=== PATIENT | female | born 1985 | race African-American/Black ===

== ENCOUNTER → 2018-08-13 | Outpatient (CLI) | payer OTHER ==
--- NOTE | 2018-08-14 18:07 | RAD ---
DATE: 08/13/2018 EXAM: MAMMO DAMARISErnesto LOPEZAT, BREAST BILATERAL HISTORY: Bilateral nipple discharge for a few to several years. Recent bloody discharge bilaterally. COMPARISON: None. This exam is the baseline. This study was interpreted with the benefit of Computerized Aided Detection (CAD). Breast Density: HETERO The breast parenchyma is heterogenously dense, which could reduce sensitivity of mammography. Breast parenchyma level C. FINDINGS: Bilateral breast ultrasound exam was performed. No mass or subareolar ductal ectasia. At the right breast 9:00 region 3 cm from the nipple, there is a hypoechoic structure without flow within it measuring 0.5 cm x 0.47 x 0.2 cm tall. It is smoothly marginated. No suspicious calcifications or distortion. No persistent suspicious asymmetry on spot compression imaging. IMPRESSION: Clinical management of nipple discharge is recommended. Small hypoechoic mass at the right outer breast. Interval follow-up in 6 months with ultrasound recommended to assess stability. BI-RADS CATEGORY: 3 PROBABLY BENIGN FINDING(S)-SHORT INTERVAL FOLLOW-UP SUGGESTED RECOMMENDED FOLLOW-UP: 6M 6 MONTH FOLLOW-UP PQRS compliance statement: Patient information was entered into a reminder system with a target due date based on clinical management for the next mammogram. Mammography is a sensitive method for finding small breast cancers, but it does not detect them all and is not a substitute for careful clinical examination. A negative mammogram does not negate a clinically suspicious finding and should not result in delay in biopsying a clinically suspicious abnormality. "Our facility is accredited by the [employer] Mammography [employer]."
== END | disposition home or self-care (01) ==
LOC: US 11:03
PROVIDERS: ATTEND Obstetrics & Gynecology
DX: Z01.419 Encounter for gynecological examination (general) (routine) without abnormal findings (principal); N63.11 Unspecified lump in the right breast, upper outer quadrant; N92.0 Excessive and frequent menstruation with regular cycle; N64.52 Nipple discharge
CPT/HCPCS: 76641; 77066; G0279; 77062

== ENCOUNTER → 2018-08-20 | Outpatient (CLI) | payer OTHER ==
--- NOTE | 2018-08-20 15:14 | RAD ---
Transabdominal pelvic ultrasound 08/20/2018 INDICATION: Menorrhagia COMPARISON STUDY: None Discussion: Ultrasound evaluation of the pelvis was performed transabdominally. Static images are submitted to PACS. Uterus measures 10.8 x 4.0 5.5 cm. Endometrial thickness is 6 mm. No focal uterine lesions are identified. The right ovary measures 3.5 x 2.3 x 3.9 cm. Left ovary measures 3.4 x 2.5 x 2.4 cm. Blood flow to bilateral ovaries is identified on color Doppler imaging. Limited visualization of the bladder is unremarkable. No free fluid is seen in the pelvis. IMPRESSION: Unremarkable transabdominal sonographic appearance of the pelvis Electronically signed by: Tho Mayorga MD (08/20/2018 3:11 PM) [facility]
== END | disposition home or self-care (01) ==
LOC: US 11:52
PROVIDERS: ATTEND Obstetrics & Gynecology
DX: Z01.419 Encounter for gynecological examination (general) (routine) without abnormal findings (principal); N92.0 Excessive and frequent menstruation with regular cycle; N64.52 Nipple discharge
CPT/HCPCS: 76856

== ENCOUNTER 2020-05-03 15:04 | Emergency (ER) | payer SELFPAY ==
[~2020-05-03] VITALS: Ht 172.7 cm; Wt 107.7 kg
--- NOTE | 2020-05-03 16:51 | RAD ---
US OB <14 WKS +TV History: Reason: pelvic pain r/o ectopic / Spl. Instructions: / History: Comparison: August 20, 2018. Technique: Grayscale and color Doppler imaging of the pelvis was performed using transabdominal and t ransvaginal technique. Findings: The uterus measures 9.0 x 5.0 x 4.0 cm. No evidence of intrauterine . Endometrial thickness 1.0 cm. Right ovary measures 3.3 x 1.8 x 1.6 cm. Left ovary measures 4.2 x 2.7 x 1.8 cm. Complex left ovarian follicle measures 2.5 cm. Normal Doppler flow to the ovaries bilaterally. No adnexal masses are seen. IMPRESSION: 1. No evidence of intrauterine , may relate to early . Recommend short-term ultras ound follow-up and serial beta-hCG testing to exclude ectopic . 2. Left ovarian complicated follicle. Recommend attention on follow-up. Electronically signed by: Momo Harman DO (05/03/2020 4:49 PM) [id number]
[2020-05-03 17:57] LABS: PREG TEST PT QUAL NEGATIVE (NEG)
--- NOTE | 2020-05-03 18:02 | ED.ADGEN ---
General Adult EDM: Chief Complaint: ABDOMINAL PAIN HPI: HPI: Patient is a 34 year old AA female who presents to the emergency department with complaints of left-sided lower abdominal/pelvic pain with nausea and vomiting that has been worse for the last 2 to 3 days. Patient was sent by Dr. Sheehan to rule out ectopic . Patient reports she has had a total of four ectopic pregnancies even after her D&C. Patient denies any diarrhea, dysuria, hematuria, increased urinary frequency, fever, cough, or shortness of breath. She currently rates her pain a 6 out of 10 on the pain scale, she denies any alleviating factors. Patient denies any abnormal vaginal discharge or vaginal bleeding. Review of Systems: Review of Systems: Complete ROS is negative unless otherwise noted in HPI. Current Medications: Current Medications Medications (Trade) Dose Ordered Sig/Sb Start Time Stop Time Status Last Admin Dose Admin Acetaminophen/ Hydrocodone Bitart (Lortab 5/325) 1 tab 1X ONCE 05/03/20 18:00 05/03/20 18:19 DC 05/03/20 18:16 1 TAB Allergies: Allergies: Allergies Coded Allergies Type Severity Reaction Last Updated Verified No Known Drug Allergies 05/03/20 No Physical Exam: PE: See Above Constitutional: Well developed, well nourished, no acute distress, non-toxic appearance, obese. [] HENT: Normocephalic, atraumatic, bilateral external ears normal, nose normal. [] Eyes: PERRLA, EOMI, conjunctiva normal, no discharge. [] Neck: Normal range of motion, no stridor. [] Cardiovascular:Heart rate regular rhythm Lungs & Thorax: Respirations even and unlabored, no retractions, no respiratory distress Abdomen: soft, left suprapubic tenderness to palpation, no palpable mass, no guarding, no rebound tenderness Skin: Warm, dry, no erythema, no rash. [] Extremities: No cyanosis, ROM intact, no edema. [] Neurologic: Alert and oriented X 3, no focal deficits noted. [] Psychologic: Affect normal, judgement normal, mood normal. [] Current Patient Data: Labs: Laboratory Tests Test 05/03/20 17:25 Serum Test, Qualitative Negative (NEG) Vital Signs: Vital Signs Date Time Temp Pulse Resp B/P (MAP) Pulse Ox O2 Delivery O2 Flow Rate FiO2 05/03/20 18:16 98.5 85 24 123/63 (83) 99 Room Air 98.5 EKG: EKG: [] Heart Score: Risk Factors: Risk Factors: DM, Current or recent (<one month) smoker, HTN, HLP, family history of CAD, obesity. Risk Scores: Score 0 - 3: 2.5% MACE over next 6 weeks - Discharge Home Score 4 - 6: 20.3% MACE over next 6 weeks - Admit for Clinical Observation Score 7 - 10: 72.7% MACE over next 6 weeks - Early Invasive Strategies Radiology/Procedures: Radiology/Procedures: PROCEDURE: OB <14 WKS W/TV US OB <14 WKS +TV History: Reason: pelvic pain r/o ectopic / Spl. Instructions: / History: Comparison: August 20, 2018. Technique: Grayscale and color Doppler imaging of the pelvis was performed using transabdominal and transvaginal technique. Findings: The uterus measures 9.0 x 5.0 x 4.0 cm. No evidence of intrauterine . Endometrial thickness 1.0 cm. Right ovary measures 3.3 x 1.8 x 1.6 cm. Left ovary measures 4.2 x 2.7 x 1.8 cm. Complex left ovarian follicle measures 2.5 cm. Normal Doppler flow to the ovaries bilaterally. No adnexal masses are seen. IMPRESSION: 1. No evidence of intrauterine , may relate to early . Recommend short-term ultrasound follow-up and serial beta-hCG testing to exclude ectopic . 2. Left ovarian complicated follicle. Recommend attention on follow-up. [] Course & Med Decision Making: Course & Med Decision Making Pertinent Labs and Imaging studies reviewed. (See chart for details) 1800-I spoke with about the patient's negative blood hCG and ult rasound report. Per Dr. Sheehan I will prescribe the patient 20 tablets of [place] 5/325 mg and inform the patient that she needs to call the office tomorrow to arrange for follow-up. Patient will be encouraged to return to the ER if symptoms worsen or fever develops. Patient verbalized an understanding of home care, medications, follow-up, and return to ED instructions and was in agreement with the plan of care. [] Dragon Disclaimer: Dragon Disclaimer: This electronic medical record was generated, in whole or in part, using a voice recognition dictation system. Departure Departure Impression: Primary Impression: Acute pelvic pain, female Disposition: 01 DC HOME SELF CARE/HOMELESS Condition: STABLE Referrals: NO PCP (PCP) Patient Instructions: Pelvic Pain, Female, [id number] Additional Instructions: Fill the prescription and use it as directed. Call Dr. Guerin's office in the morning to arrange for follow-up for complex follicle. Return to the ER if symptoms worsen or fever develops. Scripts Hydrocodone Bit/Acetaminophen (HYDROCODONE-APAP 5-325 ) 1 Tab Tablet 1 TAB PO PRN Q6HRS PRN for PAIN for 5 Days, #20 TAB 0 Refills Prov: HEATHER WALKER DEVICE REPAIR TECHNICIAN 05/03/20 HEATHER WALKER DEVICE REPAIR TECHNICIAN May 03, 2020 18:02
[2020-05-03] MEDS: HYDROcodone/APAP 5/325MG 1 TAB TABLET PO ONE (18:16)
[2020-05-03 18:30] VITALS: BP 116/68
[2020-05-03] MEDS ORDERED: HYDR-2761 PO (18:36)
== END 2020-05-03 18:50 | disposition home or self-care (01) ==
LOC: ER 15:04
DX: R10.2 Pelvic and perineal pain (principal); R10.32 Left lower quadrant pain; R11.2 Nausea with vomiting, unspecified
CPT/HCPCS: 76801; 76817; 84703; 99285-25

== ENCOUNTER 2020-05-31 12:16 | Emergency (ER) | payer SELFPAY ==
[~2020-05-31] VITALS: Ht 172.7 cm; Wt 100.0 kg
[~2020-05-31 12:16] MED LIST: HYDR-2761 PO
[2020-05-31] MEDS ORDERED: ONDANSETRON ODT 4 MG TAB.RAPDIS. PO ONE (12:45)
[2020-05-31] MEDS ORDERED: oxyCODONE/APAP 5/325 1 TAB TABLET PO ONE (12:45)
[2020-05-31 12:52] LABS: BILIRUBIN,URINE NEGATIVE (NEG); CLARITY,URINE CLEAR; COLOR,URINE YELLOW; NITRITE,URINE NEGATIVE (NEG); PH,URINE 6.5 (<5.0-8.0); PROTEIN,URINE NEGATIVE (NEG-TRACE)
[2020-05-31 13:05] LABS: BACTERIA,URINE FEW /HPF (0-FEW); RBC,URINE 0 /HPF (0-2)
--- NOTE | 2020-05-31 13:35 | RAD ---
INDICATION: Reason: left pelvic pain hx of ovarian cyst 05/03. Instructions: / History: COMPARISON: August 20, 2018 TECHNIQUE: Grayscale and color ultrasound images uterus and adnexa. FINDINGS: Uterus: 95 x 57 x 50 mm. Endometrial stripe is 5-6 mm. Right Ovary: 37 x 29 x 25 mm. Left Ovary: 38 x 30 x 27 mm. Vascular flow identified to bilateral ovaries. Mixed echogenicity lesion in the left ovary measuring 24 x 13 x 20 mm IMPRESSION: * Vascular flow seen to the bilateral ovaries. * Repeat demonstration of mixed echogenicity lesion at the left ovary but does not appear significan tly changed in size compared to prior Electronically signed by: Toño Slater MD (05/31/2020 1:32 PM) [id number]
--- NOTE | 2020-05-31 14:43 | PHYS DOC ---
Past Medical History Past Medical History: Anxiety, Unknown Additional Past Medical Histor: ECTOPIC ,OVARIAN CYST Past Surgical History: Other Additional Past Surgical Histo: TUBAL, ANKLE Smoking Status: Current Every Day Smoker Alcohol Use: Occasionally General Adult EDM: Chief Complaint: ABDOMINAL PAIN HPI: HPI: Patient is a 34 year old female with history of anxiety who presents to the ED today complaining of 10 out of 10 sharp left pelvic pain, symptoms of been going on intermittently since April 2020. Denies anything specifically exacerbating or relieving her symptoms. She states she was seen in the ED on May 03, 2020 in the Ed, was diagnosed with left ovarian cyst. She states she followed-up with Dr. Guerin who told her she needs to have a procedure done to take care of the cyst but she is unable to get the procedure done because she does not have any medical insurance and also ran out of her pain medicine Review of Systems: Review of Systems: Constitutional: Denies fever or chills. [] Eyes: Denies change in visual acuity. [] HENT: Denies nasal congestion or sore throat. [] Respiratory: Denies cough or shortness of breath. [] Cardiovascular: Denies chest pain or edema. [] GI: Reports left pelvic pain, denies nausea, vomiting, bloody stools or diarrhea. [] : Denies dysuria. [] Musculoskeletal: Denies back pain or joint pain. [] Integument: Denies rash. [] Neurologic: Denies headache, focal weakness or sensory changes. [] [] Psychiatric: Denies depression or anxiety. [] Heart Score: Risk Factors: Risk Factors: DM, Current or recent (<one month) smoker, HTN, HLP, family history of CAD, obesity. Risk Scores: Score 0 - 3: 2.5% MACE over next 6 weeks - Discharge Home Score 4 - 6: 20.3% MACE over next 6 weeks - Admit for Clinical Observation Score 7 - 10: 72.7% MACE over next 6 weeks - Early Invasive Strategies Current Medications: Current Medications Medications (Trade) Dose Ordered Sig/Sb Start Time Stop Time Status Last Admin Dose Admin Ondansetron HCl (Zofran Odt) 4 mg 1X ONCE 05/31/20 12:45 05/31/20 12:46 DC 05/31/20 13:13 4 MG Oxycodone/ Acetaminophen (Percocet 5/325) 1 tab 1X ONCE 05/31/20 12:45 05/31/20 12:46 DC 05/31/20 13:13 1 TAB Allergies: Allergies: Allergies Coded Allergies Type Severity Reaction Last Updated Verified No Known Drug Allergies 05/03/20 No Physical Exam: PE: Constitutional: Well developed, well nourished, no acute distress, non-toxic appearance. [] Abdomen: Bowel sounds normal, soft, mild left pelvic tenderness, no masses, no pulsatile masses. [] Pelvic exam Deferred per patient request Skin: Warm, dry, no erythema, no rash. [] Back: No tenderness, no CVA tenderness. [] Extremities: No tenderness, no cyanosis, no clubbing, ROM intact, no edema. [] Neurologic: Alert and oriented X 3, normal motor function, normal sensory function, no focal deficits noted. Psychologic: Affect normal, judgement normal, mood normal. [] Current Patient Data: Labs: Laboratory Tests Test 05/31/20 12:45 05/31/20 12:47 Urine Collection Type Unknown Urine Color Yellow Urine Clarity Clear Urine pH 6.5 (<5.0-8.0) Urine Specific [place] 1.020 (1.000-1.030) Urine Protein Negative mg/dL (NEG-TRACE) Urine Glucose (UA) Negative mg/dL (NEG) Urine Ketones (Stick) Negative mg/dL (NEG) Urine Blood Negative (NEG) Urine Nitrite Negative (NEG) Urine Bilirubin Negative (NEG) Urine Urobilinogen Dipstick 1.0 mg/dL (0.2 mg/dL) Urine Leukocyte Esterase Small (NEG) Urine RBC 0 /HPF (0-2) Urine WBC 5-10 /HPF (0-4) Urine Squamous Epithelial Cells Mod /LPF Urine Bacteria Few /HPF (0-FEW) POC Urine HCG, Qualitative Hcg negative (Negative) Vital Signs: Vital Signs Date Time Temp Pulse Resp B/P (MAP) Pulse Ox O2 Delivery O2 Flow Rate FiO2 05/31/20 13:13 16 99 05/31/20 12:34 97.7 84 133/58 (83) Room Air 97.7 EKG: EKG: [] Radiology/Procedures: Radiology/Procedures: []PROCEDURE: PELVIS COMPLETE INDICATION: Reason: left pelvic pain hx of ovarian cyst 05/03 / Spl. Instructions: / History: COMPARISON: August 20, 2018 TECHNIQUE: Grayscale and color ultrasound images uterus and adnexa. FINDINGS: Uterus: 95 x 57 x 50 mm. Endometrial stripe is 5-6 mm. Right Ovary: 37 x 29 x 25 mm. Left Ovary: 38 x 30 x 27 mm. Vascular flow identified to bilateral ovaries. Mixed echogenicity lesion in the left ovary measuring 24 x 13 x 20 mm IMPRESSION: * Vascular flow seen to the bilateral ovaries. * Repeat demonstration of mixed echogenicity lesion at the left ovary but does not appear significantly changed in size compared to prior Electronically signed by: Je Bright MD (05/31/2020 1:32 PM) [id number] DICTATED and SIGNED BY: JE BRIGHT MD DATE: 05/31/20 [id number] Course & Med Decision Making: Course & Med Decision Making Pertinent Labs and Imaging studies reviewed. (See chart for details) This is a 34-year-old female patient presenting to the ED today with left pelvic pain, symptoms began in April. She was diagnosed with left ovarian cyst on May 03 and followed up with Dr. Guerin who recommended the procedure to take care of the cyst. She is unable to have the procedure done because she has no medical insurance. Negative urine hCG, UA appears grossly contaminated. Pelvic ultrasound was noted for left ovarian cyst similar in size to the previous ultrasound done on May 03, 2020. Provided patient prescription for pain medicine and discharged her to follow-up with PHONE TRIAGE SPECIALIST. Ryann Disclaimer: Ryann Disclaimer: This electronic medical record was generated, in whole or in part, using a voice recognition dictation system. Departure Departure Impression: Primary Impression: Ovarian cyst, left Disposition: DC HOME SELF CARE/HOMELESS Condition: STABLE Referrals: NO PCP (PCP) ELADIA GUERIN Jr, MD follow up in 1 week Patient Instructions: Ovarian Cyst, [id number] Additional Instructions: You were evaluated in the emergency room and noted to have left ovarian cyst. Continue applying warm packs to the left lower abdomen as needed for pain. Take the prescribed medications as needed for pain. Please follow-up with your PHONE TRIAGE SPECIALIST as soon as you can Scripts Oxycodone/Apap 10-325 (PERCOCET 10-325 MG TABLET ) 1 Each Tablet 1 TAB PO PRN Q6HRS PRN for PAIN, #45 TAB 0 Refills Prov: MUTUNGA,LISBETH PHLEBOTOMY PROGRAM COORDINATOR 05/31/20 LISBETH TAYLOR APRN May 31, 2020 14:43
[2020-05-31] MEDS ORDERED: OXYC1TAB22 PO (14:51)
[2020-05-31] MEDS ORDERED: NAPR-514 PO (14:53)
[2020-05-31] MEDS ORDERED: PROM12.58 PO (14:53)
[2020-05-31 14:55] VITALS: BP 109/64
== END 2020-05-31 15:04 | disposition home or self-care (01) ==
LOC: ER 12:16
DX: N83.202 Unspecified ovarian cyst, left side (principal); F17.200 Nicotine dependence, unspecified, uncomplicated
CPT/HCPCS: 76856; 81001; 81025; 87086; 99285-25

== ENCOUNTER → 2020-08-15 | Outpatient (CLI) | payer OTHER ==
[~2020-08-15] MED LIST changes: +ARIP10TA9 PO; +ASCO500C PO; +CETI10TA74 PO; +CHOL100013 PO; +HYDR25CA PO; +IBUP-1027 PO; +MULT-496 PO; +NAPR-514 PO; +OXYC1TAB22 PO; +PROM12.58 PO
== END ==
LOC: LAB 12:37
PROVIDERS: ATTEND Obstetrics & Gynecology
DX: Z01.812 Encounter for preprocedural laboratory examination (principal); Z20.822 Contact with and (suspected) exposure to COVID-19
CPT/HCPCS: U0003; U0005

== ENCOUNTER 2020-09-03 12:47 | Emergency (ER) | payer SELFPAY ==
[~2020-09-03] VITALS: Ht 172.7 cm; Wt 100.0 kg
[2020-09-03 13:00] VITALS: BP 134/78
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
[2020-09-03] MEDS ORDERED: HYDROcodone/APAP 5/325MG 1 TAB TABLET PO ONE (13:45)
[2020-09-03] MEDS ORDERED: DIPH,PERTUSS(ACELL),TET VAC/PF 0.5 ML SYRINGE. VAX IM ONE (13:45)
[2020-09-03] MEDS ORDERED: LIDOCAINE 2% Multi-Dose 20 ML VIAL. IJ ONE (13:45)
--- NOTE | 2020-09-03 13:54 | RAD ---
Three-view right wrist and 3 view bilateral elbow and 2 view left forearm and 4 view left knee HISTORY: Fall and laceration and pain Three-view right wrist: AP lateral oblique views Visualized osseous structures appear normal. IMPRESSION: No acute findings. End impression 3 view bilateral elbows: AP lateral oblique views were obtained of the elbows bilaterally The visualized osseous structures appear normal. IMPRESSION: No acute findings. End impression Two-view left forearm: AP lateral views The visualized osseous structures appear normal. IMPRESSION: No acute findings End impression 4 views left knee: AP lateral oblique and sunrise views The visualized osseous structures appear normal. IMPRESSION: No acute findings. Electronically signed by: Daryn Vergara III, MD (09/03/2020 1:51 PM) [facility]
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
[2020-09-03] MEDS ORDERED: ORPH100T PO (15:03)
[2020-09-03] MEDS ORDERED: HYDR-2761 PO (15:03)
[2020-09-03] MEDS ORDERED: IBUP-1007 PO (15:03)
[2020-09-03] MEDS ORDERED: CEPH500C PO (15:04)
== END 2020-09-03 15:20 | disposition home or self-care (01) ==
LOC: ER 12:47
DX: S81.012A Laceration without foreign body, left knee, initial encounter (principal); S00.212A Abrasion of left eyelid and periocular area, initial encounter; S50.312A Abrasion of left elbow, initial encounter; S50.812A Abrasion of left forearm, initial encounter; M25.531 Pain in right wrist; G89.29 Other chronic pain; M54.2 Cervicalgia; F17.200 Nicotine dependence, unspecified, uncomplicated; W18.09XA Striking against other object with subsequent fall, initial encounter; Y93.89 Activity, other specified; Y92.89 Other specified places as the place of occurrence of the external cause; Y99.8 Other external cause status
CPT/HCPCS: 12004; 70450; 70486; 72125; 73090; 73110; 73564; 90471; 90715; 73080-50; 99285-25

== ENCOUNTER 2020-09-14 13:04 | Emergency (ER) | payer SELFPAY ==
[~2020-09-14] VITALS: Ht 172.7 cm; Wt 100.0 kg
[~2020-09-14 13:04] MED LIST changes: +CEPH500C PO; +IBUP-1007 PO; +ORPH100T PO
[2020-09-14 13:30] VITALS: BP 149/72
--- NOTE | 2020-09-14 13:36 | ED.ADGEN ---
Past Medical History Past Medical History: Anxiety, Unknown Additional Past Medical Histor: ECTOPIC ,OVARIAN CYST Past Surgical History: Other Additional Past Surgical Histo: TUBAL, ANKLE Smoking Status: Current Every Day Smoker Alcohol Use: Occasionally General Adult EDM: Chief Complaint: SUTURE/STAPLE REMOVAL HPI: HPI: Patient is a 34 year old female who presents emergency department for suture removal. Patient was here 11 days ago and had 8 sutures put in her left knee. Patient states that her left arm also continues to hurt, she has not followed up about that injury. She states that her left knee which is for the sutures replaced she denies any purulent discharge or bleeding. She currently rates the discomfort in her left arm 8 out of 10 on pain scale. Review of Systems: Review of Systems: Complete ROS is negative unless otherwise noted in HPI. Allergies: Allergies: Allergies Coded Allergies Type Severity Reaction Last Updated Verified No Known Drug Allergies 08/09/20 No Physical Exam: PE: See Above Constitutional: Well developed, well nourished, no acute distress, non-toxic appearance. [] HENT: Normocephalic, atraumatic, bilateral external ears normal, nose normal. [] Eyes: PERRLA, EOMI, conjunctiva normal, no discharge. [] Neck: Normal range of motion, no stridor. [] Cardiovascular:Heart rate regular rhythm Lungs & Thorax: Respirations even and unlabored, no retractions, no respiratory distress Skin: Warm, dry, no erythema, no rash; sutured wound to the anterior left knee, moderate crusting about the wound, edges are well approximated, 8 sutures present all are intact, no surrounding erythema, no purulent drainage or bleeding. [] Extremities: Left elbow: No bony tenderness or obvious deformity, no cyanosis, ROM intact, no edema. [] Neurologic: Alert and oriented X 3, no focal deficits noted. [] Psychologic: Affect normal, judgement normal, mood normal. [] EKG: EKG: [] Heart Score: C/O Chest Pain: No Risk Scores: Score 0 - 3: 2.5% MACE over next 6 weeks - Discharge Home Score 4 - 6: 20.3% MACE over next 6 weeks - Admit for Clinical Observation Score 7 - 10: 72.7% MACE over next 6 weeks - Early Invasive Strategies Radiology/Procedures: Radiology/Procedures: 8 sutures were removed from the left knee, no bleeding or purulent drainage, mild wound dehiscence medially, Steri-Strips were applied by nursing staff. [] Course & Med Decision Making: Course & Med Decision Making Pertinent Labs and Imaging studies reviewed. (See chart for details) Patient presented to the ER with complaints of continued left arm pain and request for suture removal. I Reviewed the imaging from her previous visit, patient did have negative x-rays of her left elbow, and left wrist. She declined reimaging. Sutures removed from left knee, slight wound dehiscence medially, Steri-Strips applied by nurse. Patient was instructed to follow-up with Dr. Schaefer for further evaluation of continued arm pain return to the ER if symptoms worsen or fever develops. Patient verbalized an understanding of home care, medications, follow-up, and return to ED instructions and was in agreement with the plan of care. [] Dragon Disclaimer: Dragon Disclaimer: This electronic medical record was generated, in whole or in part, using a voice recognition dictation system. Departure Departure Impression: Primary Impression: Encounter for removal of sutures Additional Impression: Pain, arm, left Disposition: 01 HOME / SELF CARE / HOMELESS Condition: STABLE Referrals: MARC SCHAEFER MD Patient Instructions: Sterile Tape Wound Closure, Suture Removal-Brief Additional Instructions: Do not bend your knee and how the wound has healed completely. The Steri-Strips that were applied will dry up and come off on their own, do not pick at them. Follow-up with Dr. Schaefer about your continued right arm pain, return to the ER if symptoms worsen or fever develops. Attending Signature I have participated in the care of this patient and I have reviewed and agree with all pertinent clinical information above including history, exam, and recommendations. Problem Qualifiers HE[employer]ER W[employer]ER [employer] SALES September 14, 2020 13:36 SUNDAY PENNINGTON DO September 14, 2020 13:47
== END 2020-09-14 13:40 | disposition home or self-care (01) ==
LOC: ER 13:04
DX: S81.012D Laceration without foreign body, left knee, subsequent encounter (principal); X58.XXXD Exposure to other specified factors, subsequent encounter
CPT/HCPCS: 99281

== ENCOUNTER 2021-01-23 19:05 | Emergency (ER) | payer SELFPAY ==
[~2021-01-23] VITALS: Ht 172.7 cm; Wt 104.5 kg
[2021-01-23 22:12] VITALS: BP 149/73
== END 2021-01-23 23:55 | disposition left against medical advice (07) ==
LOC: ER 19:05
DX: R50.9 Fever, unspecified (principal); Z53.21 Procedure and treatment not carried out due to patient leaving prior to being seen by health care provider